=== PATIENT | female | born 1970 | race Caucasian/White ===

== ENCOUNTER 2016-09-28 23:07 | Emergency (ER) | payer BC ==
[~2016-09-28] VITALS: Ht 167.6 cm; Wt 65.8 kg
[2016-09-28 23:14] VITALS: BP 131/102
[2016-09-29] MEDS ORDERED: LIDOCAINE700 MG TP (00:15)
== END 2016-09-29 00:36 | disposition home or self-care (01) ==
LOC: EME 23:07
DX: M50.223 Other cervical disc displacement at C6-C7 level (principal); Z87.442 Personal history of urinary calculi
CPT/HCPCS: 99281; 99284